=== PATIENT | female | born 1965 | race Two or more races ===

== ENCOUNTER 2021-11-20 20:05 | Emergency (ER) | payer SELFPAY ==
[2021-11-20 20:12] VITALS: BP 105/72; PULSE 81; RESP 18; TEMP 97.8; BMI 19.9
[2021-11-20] MEDS ORDERED: HEPARIN NA (PORCINE) 5,000 UNITS/ML 1ML VIAL ONE (22:00)
== END 2021-11-20 22:37 | disposition home or self-care (01) ==
LOC: JERFT 20:05
DX: H66.91 Otitis media, unspecified, right ear (principal)
CPT/HCPCS: 99281-25